=== PATIENT | male | born 1945 | race Caucasian/White ===

== ENCOUNTER → 2018-05-18 | Outpatient (CLI) | payer MEDICARE, BC | END | disposition home or self-care (01) | LOC: PCVCIMAG 14:28 | DX: I10 Essential (primary) hypertension (principal); R06.09 Other forms of dyspnea; R06.02 Shortness of breath; R07.89 Other chest pain; E78.00 Pure hypercholesterolemia, unspecified; A69.20 Lyme disease, unspecified; I35.1 Nonrheumatic aortic (valve) insufficiency; Z82.49 Family history of ischemic heart disease and other diseases of the circulatory system; Z79.899 Other long term (current) drug therapy; Z79.82 Long term (current) use of aspirin | CPT/HCPCS: 93005; 93306; G0463 ==